=== PATIENT | male | born 1940 | race Caucasian/White ===

== ENCOUNTER 2020-11-02 06:51 | Day surgery (SDC) | payer OTHER ==
[~2020-11-02] VITALS: Ht 172.7 cm; Wt 77.1 kg
--- NOTE | ~2020-11-02 | O ---
[facility] [place] [address] OPERATIVE REPORT Name: MICHELLE CONNORS Room #: 150-5 [facility] M..#: [id number] Admission: 11/02/20 Attend Phys: Raleigh Balderrama MD Discharge: Date of : 40 Report #: [id number] THIS REPORT FOR: cc: Reymundo Brothers,Raleigh Chaudhary MD ~ DOC #: [id number] cc: Reymundo Balderrama MD DATE OF SERVICE: 11/02/2020 PREOPERATIVE DIAGNOSIS: Tumor of right upper lid and brow. 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 PROCEDURE: Excision of tumor of right upper lid and brow and frozen section control of margins and myocutaneous flap repair of defect. ANESTHESIA: MAC. COMPLICATIONS: None. INDICATIONS FOR SURGERY: This pleasant 80-year-old gentleman presents with a pearly nodule in his medial right upper lid and brow with absolute madarosis. The lesion appears to most likely be frankly neoplastic. He presents today for excision of this lesion with frozen sections and subsequent reconstruction of that defect. Informed consent was obtained to include but not limited to the potential risk for loss of vision, bleeding, infection, failure to improve the problem, and the potential need for further surgery or treatment. DESCRIPTION OF PROCEDURE: The patient was taken to the operating room where 2% Xylocaine with epinephrine mixed with equal parts of 0.75% Marcaine with Wydase was administered transcutaneously to the right upper lid, the right medial canthus, the glabella and the brow. The patient was subsequently prepped and draped in the usual sterile fashion. A fine tip skin marking pen was then utilized to outline the lesion including 2 mm of normal-appearing tissue around its margins. The incisions were then made with a 15 blade and the deeper dissection accomplished with a Deanna scissor. The specimen was then oriented on a drawing for the waiting pathologist. Hemostasis was achieved. The pathologist snap froze that specimen and found that the lesion was indeed a basal cell carcinoma. He thought it was somewhat close laterally, but he thought the margin was indeed clear. With an information at hand, myocutaneous flap was then developed laterally to [address] [address] OPERATIVE REPORT Name: MICHELLE CONNORS Room #: 150-5 [facility].#: [id number] Admission: 11/02/20 Attend Phys: Raleigh Balderrama MD Discharge: Date of : 40 Report #: [id number] correct the defect. Hemostasis was then re-achieved. The flap was then advanced and secured with buried 6-0 Vicryl sutures closing the wound parallel to relaxed skin tension line. The superficial closure was then accomplished with multiple interrupted 6-0 plain gut sutures. The wound was then cleaned and dressed with erythromycin ophthalmic ointment. The patient subsequently transported to the recovery area, having tolerated the procedures well with no anesthetic or operative complications being noted. Raleigh Balderrama MD WLW/KDA By: [phone] Raleigh Balderrama MD /nt
[~2020-11-02 06:51] MED LIST: ASPIR 8181 MG PO; CALCIUM 500 +1 EAC5 PO; CALCIUM 600 +1 EAC1 PO; CALTRATE+D3 PL1 EACH PO; COQ-10100 MG PO; CRANBERRY200 MG PO; CRANBERRY500 M3 PO; CRESTOR PO; CRESTOR20 MG PO; FISH OIL 1,001000 M2 PO; FLAX SEED OIL1000 MG PO; FLOMAX0.4 MG PO; IBUPROFEN 200200 M1 PO; KRILL OIL 1,001 EAC1 PO; LATANOPROST 0.2.5 ML OPHTHALMIC; LOPRESSOR25 PO; LUPRON DEPOT11.25 MG IM; METFORMIN HCL500 M3 PO; MICARDIS 80 MG80 MG PO; MOVE FREE JOIN1 EACH PO; MULTI VITAMIN1 EACH PO; PLAVIX 75 MG TA75 MG PO; POTASSIUM GLUCO99 M2 PO; POTASSIUM PO; PROSCAR 5MG TABL5 MG PO; SAW PALMETTO450 MG PO; TIMOLOL MALEAT1 EACH OPHTHALMIC; TOPROL XL50 MG; TRAVATAN Z2.5 ML OPHTHALMIC; VITAMIN B-121000 MC2 PO; VITAMIN B-12500 MCG PO
[2020-11-02 10:25] VITALS: BP 155/59
--- NOTE | 2020-11-03 18:06 | PATH ---
[facility] [address] [place] [address] PATHOLOGY RPT PROCEDURE Name: MICHELLE CONNORS Room #: DEP [facility]..#: [id number] Admission: 11/02/20 Date of : 40 Discharge: 11/02/20 Report #: [id number] Path Case #: [id number] [facility] Accession Number: [id number] . 01 Material submitted: . lid - RIGHT UPPER LID/BROW LESION-FS. Modifiers: right, upper . 01 Clinical history: . [facility] . 02 Frozen section diagnosis: . FROZEN SECTION DIAGNOSIS: (Harini Oliveros MD) . FSA1 and FSA2, right upper lid/brow lesion, excision: - BASAL CELL CARCINOMA. - Close to lateral side margin. - Remainder of margins widely free. . These findings are discussed with Dr. Raleigh Balderrama in OR6 at [facility] and a written report is placed in the patient's chart. . Frozen section performed at [facility], [address] [place] [address]. . . FROZEN SECTION GROSS DESCRIPTION: Specimen is received fresh from the OR labeled with the patient's name, "right upper lid/brow lesion", consists of an ellipse of skin oriented as superior, medial, inferior and lateral. The superior to medial to inferior margin is inked black, the inferior to lateral margin is inked blue and the lateral to superior margin is inked green. There is a raised area at the center of the lesion measuring approximately 0.9 cm. At this point, the specimen is serially sectioned and submitted entirely for frozen section as FSA1, and FSA2. The frozen section remnants are submitted for permanent sections in A1 and A2, respectively. (IUV:angelina; 11/02/2020) IZV/S . 02 Diagnosis: Skin, right upper lid/brow lesion, excision: - BASAL CELL CARCINOMA. - Margins free of malignancy. (IUV:pit; 11/03/2020) QTP 11/03/2020 1721 Local . 02 Electronically signed: . [facility] [address] [place] [address] PATHOLOGY RPT PROCEDURE Name: MICHELLE CONNORS Room #: DEP [facility] Ivory#: [id number] Admission: 11/02/20 Date of : 40 Discharge: 11/02/20 Report #: [id number] Path Case #: [id number] Harini Oliveros MD, Pathologist NPI- [id number] . 01 Gross description: . PLEASE SEE GROSS DESCRIPTION UNDER FROZEN SECTION DIAGNOSIS. /QMS 11/02/2020 1242 Local . 02 Pathologist provided ICD-10: C44.1121 . 02 CPT . 546813, [id number], [id number] Specimen Comment: A courtesy copy of this report has been sent to [phone], [phone] Specimen Comment: [phone] Specimen Comment: Report sent to / DR HURD Performed at: [address], [place] [id number] MD Lobito Wang MD Phone: [phone] Performed at: [address] [id number] MD Harini Oliveros MD Phone: [phone]
== END 2020-11-02 10:10 | disposition home or self-care (01) ==
LOC: OR 06:51 → TBA 06:52 → OR 09:30
PROVIDERS: ATTEND Ophthalmology
DX: C44.1121 Basal cell carcinoma of skin of right upper eyelid, including canthus (principal); I10 Essential (primary) hypertension; E78.00 Pure hypercholesterolemia, unspecified; E11.9 Type 2 diabetes mellitus without complications; H40.9 Unspecified glaucoma; Z98.890 Other specified postprocedural states; Z79.899 Other long term (current) drug therapy; Z95.1 Presence of aortocoronary bypass graft; Z85.828 Personal history of other malignant neoplasm of skin; Z85.46 Personal history of malignant neoplasm of prostate; Z90.49 Acquired absence of other specified parts of digestive tract; Z86.73 Personal history of transient ischemic attack (TIA), and cerebral infarction without residual deficits; Z98.41 Cataract extraction status, right eye; Z98.42 Cataract extraction status, left eye
CPT/HCPCS: 50010; 50101; 50386; 50398; 51636; 56528; 56531; 62110; 62850; 70005